=== PATIENT | female | born 1995 | race Caucasian/White ===

== ENCOUNTER 2025-06-27 15:12 | Emergency (ER) | payer OTHER ==
[2025-06-27] MEDS: Lidocaine/Epineph/Tetracaine 3 ML Syringe TOP ONE (16:46)
== END 2025-06-27 18:14 | disposition home or self-care (01) ==
LOC: JP.ED 15:12
DX: S61.216A Laceration without foreign body of right little finger without damage to nail, initial encounter (principal); Z91.018 Allergy to other foods; W26.8XXA Contact with other sharp object(s), not elsewhere classified, initial encounter; Y93.89 Activity, other specified
CPT/HCPCS: 12002; 99282; 99283; A9270-GY